=== PATIENT | female | born 1970 | race Caucasian/White ===

== ENCOUNTER 2017-04-27 19:17 | Observation (INO) | payer OTHER ==
[2017-04-27 20:05] LABS: HEMATOCRIT 41.6 % (37.0-47.0); HEMOGLOBIN 14.1 g/dl (12.0-16.0); IMMATURE GRANULOCYTES 0.3 % (0.0-1.0); MEAN CELL VOLUME 90.8 fL CALC (80.0-100.0); MEAN CORPUSCULAR HGB 30.8 pG CALC (26.0-32.0); MEAN CORPUSCULAR HGB CONC 33.9 g/L CALC (32.0-36.0); NEUT# 7.55 thou/uL (2.00-7.15); RED BLOOD COUNT 4.58 mill/uL (4.20-5.60); RED CELL DISTRI WIDTH 12.2 % (11.5-15.5)
[2017-04-27 20:18] LABS: ALBUMIN 4.5 g/dL (3.2-5.0); ALKALINE PHOSPHATASE 92 u/l (38-126); ANION GAP 16 (6-22 (CALC)); BILIRUBIN, TOTAL 0.4 mg/dL (0.0-1.4); BUN 14 mg/dL (7-17); BUN/CREATININE RATIO 16 (12-20 (CALC)); CARBON DIOXIDE 31 mmol/l (22-30); CHLORIDE 101 mmol/l (95-108); CREATININE 0.8 mg/dL (0.5-1.0); GFR > 60 ML/MIN (>=60 (CALC)); GFR FOR AFR.AMER. > 60 ML/MIN (>=60 (CALC)); GLUCOSE 86 mg/dL (65-105); POTASSIUM 4.7 mmol/l (3.5-5.1); SGOT/AST 31 u/l (14-36); SGPT/ALT 50 u/l (9-52); SODIUM 143 mmol/l (137-146); TOTAL PROTEIN 8.1 g/dL (6.3-8.2)
[2017-04-27 20:20] LABS: ACT PARTIAL THROMBO TIME 27.3 SECONDS (20.0-32.5)
[2017-04-27 20:30] LABS: MYOGLOBIN 19 ng/mL (0 - 62)
[2017-04-27 20:55] LABS: URINE BILIRUBIN - DIPSTICK NEGATIVE (NEGATIVE); URINE BLOOD DIPSTICK NEGATIVE (NEGATIVE); URINE CLARITY CLEAR; URINE COLOR YELLOW; URINE GLUCOSE - DIPSTICK NEGATIVE (NEGATIVE); URINE KETONE NEGATIVE (NEGATIVE); URINE LEUK ESTERASE NEGATIVE (NEGATIVE); URINE NITRITE - DIPSTICK NEGATIVE (Negative); URINE PH 6.5 (4.5-8.0); URINE PROTEIN - DIPSTICK NEGATIVE (NEG-TRACE); URINE SPECIFIC GRAVITY 1.015; URINE UROBILINOGEN - DIPSTICK 0.2 E.U./dL (0.2)
[2017-04-27 21:47] VITALS: BP 121/78
[2017-04-27 23:36] VITALS: BP 113/71
[2017-04-28 04:24] VITALS: BP 100/69
[2017-04-28 05:57] LABS: HEMATOCRIT 37.9 % (37.0-47.0); HEMOGLOBIN 12.9 g/dl (12.0-16.0); MEAN CORPUSCULAR HGB 30.6 pG CALC (26.0-32.0); RED BLOOD COUNT 4.21 mill/uL (4.20-5.60); RED CELL DISTRI WIDTH 12.2 % (11.5-15.5)
[2017-04-28 06:23] LABS: ANION GAP 16 (6-22 (CALC)); BUN 13 mg/dL (7-17); BUN/CREATININE RATIO 21 (12-20 (CALC)); CALCIUM 9.5 mg/dL (8.4-10.2); CALCULATED LDLCHOLESTEROL 81 mg/dL (62-129 (CALC)); CARBON DIOXIDE 27 mmol/l (22-30); CHLORIDE 104 mmol/l (95-108); CHOLESTEROL HDL RATIO 2.6 (<4.4 (CALC)); CREATININE 0.6 mg/dL (0.5-1.0); GFR > 60 ML/MIN (>=60 (CALC)); GFR FOR AFR.AMER. > 60 ML/MIN (>=60 (CALC)); GLUCOSE 86 mg/dL (65-105); HDL CHOLESTEROL 64 mg/dL (>=40); POTASSIUM 4.4 mmol/l (3.5-5.1); SODIUM 143 mmol/l (137-146); TOTAL CHOLESTEROL 167 mg/dl (0-199); TOTAL TRIGLYCERIDES 112 mg/dl (30-149); VLDL CHOLESTROL 22 mg/dl (1-41 (CALC))
[2017-04-28 08:14] VITALS: BP 90/66
[2017-04-28 12:06] VITALS: BP 103/67
[2017-04-28] MEDS ORDERED: IBUPROFEN600 MG PO (13:59)
[2017-04-28] MEDS ORDERED: PEPCID20 MG PO (13:59)
== END 2017-04-28 15:18 | DRG 313 ==
LOC: ED 19:17 → ED-I 21:01 → ED 21:05 → MS2 21:06
PROVIDERS: Emergency Medicine; ADMIT Internal Medicine; ATTEND Internal Medicine
DX: R07.89 Other chest pain (principal); Z87.898 Personal history of other specified conditions; Z87.891 Personal history of nicotine dependence
CPT/HCPCS: G0378